=== PATIENT | female | born 1995 | race Caucasian/White ===

== ENCOUNTER 2019-01-13 13:18 | Emergency (ER) | payer OTHER ==
[~2019-01-13] VITALS: Ht 154.9 cm; Wt 62.6 kg
[2019-01-13] MEDS ORDERED: SYNTHROID50 MCG (13:24)
== END 2019-01-13 14:50 | disposition home or self-care (01) ==
LOC: ER 13:18
DX: S61.220A Laceration with foreign body of right index finger without damage to nail, initial encounter (principal); W26.0XXA Contact with knife, initial encounter; Y93.89 Activity, other specified; Y92.090 Kitchen in other non-institutional residence as the place of occurrence of the external cause; Y99.8 Other external cause status

== ENCOUNTER 2022-05-01 11:06 | Emergency (ER) | payer OTHER ==
[~2022-05-01] VITALS: Ht 154.9 cm; Wt 59.0 kg
[~2022-05-01 11:06] MED LIST: SYNTHROID50 MCG
== END 2022-05-01 12:16 | disposition home or self-care (01) ==
LOC: ER 11:06
DX: J02.8 Acute pharyngitis due to other specified organisms (principal); B96.89 Other specified bacterial agents as the cause of diseases classified elsewhere; Z88.1 Allergy status to other antibiotic agents